=== PATIENT | male | born 1985 | race Caucasian/White ===

== ENCOUNTER 2021-01-01 13:59 | Emergency (ER) | payer OTHER ==
[~2021-01-01] VITALS: Ht 167.6 cm; Wt 113.4 kg
[~2021-01-01 13:59] MED LIST: TOBRADEX 0.1%-0.5 ML OPH
[2021-01-01] MEDS ORDERED: CEPHALEXIN500 M1 PO (15:11)
== END 2021-01-01 15:22 | disposition home or self-care (01) ==
LOC: ED 13:59
DX: S61.412A Laceration without foreign body of left hand, initial encounter (principal); J45.909 Unspecified asthma, uncomplicated; F17.200 Nicotine dependence, unspecified, uncomplicated; W45.8XXA Other foreign body or object entering through skin, initial encounter; Y93.89 Activity, other specified; Y92.89 Other specified places as the place of occurrence of the external cause; Y99.8 Other external cause status

== ENCOUNTER 2023-04-07 13:34 | Emergency (ER) | payer OTHER ==
[~2023-04-07] VITALS: Ht 167.6 cm; Wt 99.8 kg
[~2023-04-07 13:34] MED LIST changes: +CEPHALEXIN500 M1 PO
== END 2023-04-07 14:31 | disposition home or self-care (01) ==
LOC: ED 13:34
DX: S91.012A Laceration without foreign body, left ankle, initial encounter (principal); J45.909 Unspecified asthma, uncomplicated; Z88.0 Allergy status to penicillin; Z88.1 Allergy status to other antibiotic agents; Z88.8 Allergy status to other drugs, medicaments and biological substances; W29.3XXA Contact with powered garden and outdoor hand tools and machinery, initial encounter; Y93.89 Activity, other specified; Y92.009 Unspecified place in unspecified non-institutional (private) residence as the place of occurrence of the external cause; Y99.8 Other external cause status